=== PATIENT | female | born 1950 | race Caucasian/White ===

== ENCOUNTER 2017-01-08 00:14 | Day surgery (SDC) | payer OTHER ==
[~2017-01-08] VITALS: Ht 175.3 cm; Wt 102.0 kg
[2017-01-08] VITALS (12 sets, daily range): BP systolic 110–154; BP diastolic 42–76; PULSE 55–62; RESP 10–16; O2SAT 94–97
[~2017-01-08 00:14] MED LIST: ACET1TAB12 PO; ALPR0.254 PO; ASPI-1148 PO; ASPI-973 PO; ATOR80TA77 PO; CARV6.252 PO; CITA20TA11 PO; GLIM1TAB PO; HYDR59LO2 TP; LEVO112C2 PO; LOSA100T29 PO; MELA5TAB12 PO; METF500T3 PO; PROM25TA14 PO
--- NOTE | 2017-01-08 08:30 | NUR ---
ADMISSION NOTE FEMALE PT ADMITTED FOR HEART CATH. DISCUSSED PLAN OF CARE WITH PT. SEE ADMIT AND FLOW SHEET
[2017-01-08 09:05] LABS: BASOPHILS % (AUTO) 1.1 % (0-3); EOSINOPHILS % (AUTO) 2.7 % (0-5); MONOCYTES % (AUTO) 9.3 % (4-12); Mean Corpuscular Hemoglobin 30.1 pg (27.0-35.0); Mean Corpuscular Volume 92.5 fL (81-100); NEUTROPHILS % (AUTO) 58.9 % (40-74); Platelet Count 248 bil/L (150-400)
[2017-01-08] MEDS ORDERED: Heparin 1,000 Units/500 mL NS Premix IV ONE (09:07)
[2017-01-08] MEDS ORDERED: Heparin 5,000 Units/500 mL NS Premix IV ONE (09:08)
[2017-01-08] MEDS ORDERED: Heparin 1,000 Unit/mL 10 mL Inj ONE (09:08)
[2017-01-08] MEDS ORDERED: Nitroglycerin 50,000 mcg/250 mL D5W Premix IV ONE (09:08)
[2017-01-08] MEDS ORDERED: Verapamil 2.5 mg/mL 2 mL Inj ONE (10:28)
[2017-01-08] MEDS ORDERED: 0.9% Sodium Chloride 1,000 ML IV SCH (10:40)
[2017-01-08] MEDS ORDERED: fentaNYL-PF 50 mCg/mL 2 mL Inj ONE (10:52)
--- NOTE | 2017-01-08 11:43 | CS94 ---
[address] [address] DIAGNOSTIC CARDIAC CATHETERIZATION PATIENT: MORE HOLDER : 1950 MR#: [id number] ADMIT: 01/08/2017 JOB ID: [id number] SERVICE DATE: 01/08/2017 PROCEDURE: 1. Selective right and left coronary angiography. 2. Left heart catheterization. 3. Left ventriculography. INDICATION: Chest pain in a patient with known history of LAD stenting, abnormal stress test. PROCEDURAL DETAILS: These are enumerated in the procedure log to which the reader and the coders are referred. Briefly, a right radial approach, 6-Wolof system. ANGIOGRAPHIC FINDINGS: 1. Left main normal. 2. LAD in its ostium has a 30% lesion in its mid segment. It has a long stent which is widely patent. Distal to the stent, there is about a 20% lesion. Overall excellent long-term results from stenting. 3. Circumflex is nondominant, free of any significant disease. The ramus intermedius is a moderate caliber vessel free of any significant disease. 4. Right coronary artery is dominant. It is free of any disease. 5. Left heart catheterization revealed an LVEDP of 15. There was no gradient upon pullback. Left heart catheterization revealed preserved contractility. EF is estimated to be 65%. SUMMARY: This lady's symptoms are atypical, probably related to hypertensive heart disease. There is no evidence of any significant epicardial coronary artery disease. A prior stent is patent. Medical therapy is recommended.
--- NOTE | 2017-01-08 15:30 | NUR ---
DISCHARGE NOTE UP IN ROOM, SITE STABLE. NO BLEEDING OR HEMATOMA. INSTRUCTIONS GIVEN. HOME WITH
== END 2017-01-08 23:59 | disposition home or self-care (01) ==
LOC: SOUO 00:14 → EDSTATUS 11:39 → SOUO 23:59
PROVIDERS: ATTEND Internal Medicine Cardiovascular Disease
DX: I25.10 Atherosclerotic heart disease of native coronary artery without angina pectoris (principal); R94.39 Abnormal result of other cardiovascular function study; E11.9 Type 2 diabetes mellitus without complications; I10 Essential (primary) hypertension; M79.7 Fibromyalgia; Z95.5 Presence of coronary angioplasty implant and graft; Z98.84 Bariatric surgery status; Z79.82 Long term (current) use of aspirin; Z79.84 Long term (current) use of oral hypoglycemic drugs
CPT/HCPCS: 80048; 85025; 85610; 93005; 93458; 99152; 99153; C1769; C1887; C1894; J1200; J1644; J2060; J2250; J3010; J7030; Q9967

== ENCOUNTER 2017-03-15 05:32 | Day surgery (SDC) | payer OTHER ==
--- NOTE | 2017-03-13 15:33 | PCM.ANEPRE ---
Anesthesia Pre-Op Review Reason for Review: CARDIAC HX Anesthesia Recommendations: Proceed with Procedure Additional Comments cardiac clearance in chart Curt Weaver MD Mar 13, 2017 15:33
[2017-03-15] VITALS (8 sets, daily range): BP systolic 104–168; BP diastolic 56–93; PULSE 50–56; RESP 9–17; O2SAT 97–100
[~2017-03-15] VITALS: Ht 175.3 cm; Wt 96.6 kg
[~2017-03-15 05:32] MED LIST changes: +Clindamycin 900 mg/50 mL D5W IV ONE
[2017-03-15] MEDS ORDERED: fentaNYL-PF 50 mCg/mL 2 mL Inj ONE (05:33)
[2017-03-15] MEDS ORDERED: Ondansetron 2 mg/mL 2 mL Inj ONE (05:33)
[2017-03-15] MEDS ORDERED: Dexamethasone 4 mg/mL Inj ONE (05:33)
[2017-03-15] MEDS ORDERED: Propofol 10,000 mCg/mL 20 mL Inj ONE (05:33)
[2017-03-15] MEDS ORDERED: EPHEDrine/NS 5 mg/mL 5 mL Syringe ONE (05:33)
[2017-03-15] MEDS ORDERED: Clindamycin 900 mg/50 mL D5W Premix IV ONE (05:43)
[2017-03-15] MEDS ORDERED: Lactated Ringer's 1,000 ML IV ONE ×2 (05:44→08:01)
--- NOTE | 2017-03-15 07:15 | PCM.HPANE ---
Patient Data Surgeon Admitting Provider: Attending Provider:Fredo Reynoso MD Primary Care Physician:Donna Bertrand MD Other Provider:[facility] Anest[facility] Reason for Visit Right Meniscal Tear Ht/WT & BMI Height (Feet): 5 Height (Inches): 9 Weight (Kilograms): 96.6 Body Mass Index 31.00 Allergies Coded Allergies: Penicillins (Verified Allergy, Severe, RASH, 03/12/17) honey (Verified Allergy, Severe, THROAT SWELLING, 03/12/17) shellfish derived (Verified Allergy, Severe, THROAT SWELLING, 03/12/17) Sulfa (Sulfonamide Antibiotics) (Verified Adverse Reaction, Severe, HEADACHE, 03/12/17) metformin (Verified Adverse Reaction, Severe, N&V (GENERIC ONLY), 03/12/17 ) Past Anesthesia History Anesthesia History: Denies:: Anesthesia Reactions, Malignant Hyperthermia Diabetes History Hx Diabetes?: Yes Type of Diabetes: Type II Glycemic Control: Oral Medication Current Bedside Blood Glucose: 105 MRSA MRSA: No Medications Blood Thinner: Aspirin Hypertension Medication: Yes (LOSARTAN) Home Meds Incl Beta Melissa: Yes (CARVEDILOL) Reported Medications Acetaminophen/Codeine 300-30mg (Tylenol/Codeine #3)1 Each Tablet1 Tablet PO HS PRN Pain Ref 0 01/07/17 Levothyroxine (Tirosint)112 Mcg Kgarsdo072 Mcg PO DAILY 01/07/17 Promethazine 25 Mg Vpxnmx72 Mg PO q4-6H PRN For Nausea Ref 0 01/07/17 Melatonin 5 Mg Tab.rapdis5 Mg PO 01/07/17 Losartan Potassium 100 Mg Hqlgze505 Mg PO DAILY 01/07/17 Hydrocortisone 59 Ml Lotion1 Applic TP DAILY 01/07/17 Metformin ER (Glucophage XR)500 Mg Xqopcb297 Mg PO BID Ref 0 01/07/17 Glimepiride 1 Mg Tablet1 Mg PO DAILYAC #30 TABLET Ref 0 01/07/17 Aspirin/Acetaminophen/Caffeine (Dpufwnr-Bjuoyytbicstq-Aovs Tab)250 Mg-250 Mg-65 Mg Tablet1 Each PO DAILY PRN For Headache 01/07/17 Citalopram 20 Mg Tablet5 Mg PO DAILY Ref 0 01/07/17 Carvedilol 6.25 Mg Tablet6.25 Mg PO BID Ref 0 01/07/17 Atorvastatin Calcium 80 Mg Vdujih70 Mg PO DAILY Ref 0 01/07/17 Aspirin 81 Mg Cauznx70 Mg PO DAILY Ref 0 01/07/17 Alprazolam 0.25 Mg Tablet0.25 Mg PO DAILY Ref 0 01/07/17 History History of ENT Problems?: No HEENT History: Denies:: Abnormal Airway Denture Type: None Teeth Condition: Within Normal Limits Hx of Heart Problems?: Yes Cardiovascular History: Positive for:: Cardiac Surgery (S/P HEART CATH W/ LAD ALCIDES 10/2015;HEART CATH 12/2016) Chest Pain Coronary Artery Disease (HX CO "MILD") Edema Hypertension (HYPERLIPIDEMIA) Denies:: Heart Murmur (ECHO 12/2016 EF 65-70%) Irregular Heartbeat (HX SYNCOPE) Valvular Heart Disease Hx of Respiratory Problem?: No Respiratory History: Denies:: Use of C-PAP Machine Hx Neurologic Problems?: Yes Neurological History: Positive for:: Dizziness (HX SYNCOPE) Headaches Hx of GI Problems?: Yes Other GI Pertinent History: S/P LAP BAND-UNSUCCESSFUL; NO WEIGHT LOSS Hx of Problems?: Yes Genitourinary History: Positive for:: Urinary Tract Infection (HX RECURRENT UTI'S) Female Hx: Denies:: Currently Skin History: Positive for:: History Skin Disorders? (PSORIASIS) Denies:: Pressure Ulcers Hx Musculoskeletal Problems?: Yes Musculoskeletal History: Positive for:: Back Injury Musculoskeletal Trauma (RT KNEE MENISCAL TEAR=CURRENT PROBLEM) Hx of Psycho/Social Problems?: Yes Psycho Social History: Positive for:: Anxiety Hx Depression Hx Surgeries?: Yes (HEART CATH W/ STENT,HEART CATH,LAP BAND,SACHA/MRCP,HYST) Hx Any Other Health Problems?: Yes Other History: Positive for:: Hospitalization Thyroid Disease Denies:: Cancer Endocrine Disease History Blood Transfusions: Denies:: Blood Transfuse Reaction Blood Transfusions Hx Diabetes: YesBedside Blood Glucose: 105 Hx Alcohol Use: NoHx Substance Use: No Smoking Status: Never Smoker Have You Smoked inLast 12 mo: No Stop/Bang S-Snoring: Do You Snore Loudly: No T-Tired: feel tired, fatigued: No O-Obsered: Observed not breath: No P-Blood Pressure: treated: Yes B- Body Mass Index > 35 kg/m2: No A- Age over 50: Yes N- Neck Large Circumference: No G- Gender Male: No RYAN Total Score: 4 Additional Information Screening on DOS is 2 RYAN Risk Assessment: Low Risk, <3 Yes Risk Assessment Category Category 1A: Patient has history of documented sleep apnea, and HAS NOT received any narcotic, sedative or anesthesia administration during this stay. Category 1B: Patient has history of documented sleep apnea, and HAS received any narcotic , sedative or anesthesia administration during this stay Category 2: Patient has SUSPECTED Obstructive Sleep Apnea, and HAS received any narcotic , sedative or anesthesia administration during this stay. Category 3: Patient has SUSPECTED Obstructive Sleep Apnea and HAS NOT received narcotic, sedative or anesthesia administration during this stay. Category 4: Outpatient in Procedural Areas with known sleep apnea or who screen positive for High Risk via the STOP/BANG questionnaire. Exam Exam Vital Signs Vital Signs Date Time Temp Pulse Resp B/P Pulse Ox O2 Delivery O2 Flow Rate FiO2 03/15/17 05:53 35.9 53 16 143/64 98 Room Air General Appearance: Alert, Oriented X3, Cooperative, No Acute Distress HEENT/AIRWAY: MP 2, Neck Movement Lungs: Clear to Auscultation, Normal Air Movement Heart: Exam Unremarkable, Regular Rate/Rhythm, No Murmurs/Rubs/Gallops Meds/Labs/Diagnostics Admission Meds Current Medications Lactated Ringer's (Lr) 1,000 ml @ ud STK-MED ONCE IV Last administered on 03/15t 05:44; Start 03/15/17 at 05:44; Stop 03/15/17 at 05:45; Status DC Bedside Blood Glucose: 105 Plan Impression Patient chart reviewed, patient interviewed and anesthestic plan with risks, benefits, and alternatives discussed, and informed consent obtained. NPO per Anesth. Guidelines: Yes ASA Physical Status: ASA3 Severe Disease Anesthetic Plan: GA Bene/Risks/Altern/Consents: Yes HP Complete Prior to Induction: Yes Mike Anderson MD Mar 15, 2017 07:15
[2017-03-15] MEDS ORDERED: Ropivacaine-PF 0.5% 30 mL Inj INFILTRATE ONE (08:00)
[2017-03-15] MEDS ORDERED: Ondansetron 2 mg/mL 2 mL Inj IVPUSH PRN (08:05)
[2017-03-15] MEDS ORDERED: Dexamethasone 4 mg/mL Inj IVPUSH PRN (08:05)
[2017-03-15] MEDS ORDERED: Labetalol 5 mg/mL 4 mL Inj IV PRN (08:05)
[2017-03-15] MEDS ORDERED: HYDROmorphone 1 mg/mL Inj IVPUSH PRN (08:05)
[2017-03-15] MEDS ORDERED: EPHEDrine Sulfate 50 mg/mL Inj IVPUSH PRN (08:05)
[2017-03-15] MEDS ORDERED: MetoCLOpramide 5 mg/mL 2 mL Inj IVPUSH PRN (08:05)
[2017-03-15] MEDS ORDERED: Lactated Ringer's 1,000 ML IV SCH (08:05)
[2017-03-15] MEDS ORDERED: Lactated Ringer's 500 ML IV PRN (08:05)
[2017-03-15] MEDS ORDERED: Atropine 0.4 mg/mL Inj IVPUSH PRN (08:05)
[2017-03-15] MEDS ORDERED: fentaNYL-PF 50 mCg/mL 2 mL Inj IVPUSH PRN (08:05)
[2017-03-15] MEDS ORDERED: Phenylephrine 10,000 mCg/mL Inj IVPUSH PRN (08:05)
[2017-03-15] MEDS ORDERED: HYDROcodone-APAP 5-325 mg Tablet PO PRN (08:25)
[2017-03-15] MEDS ORDERED: Ketorolac 15 mg/mL Inj IVPUSH ONE (08:25)
--- NOTE | 2017-03-15 08:31 | PCM.ORTHOP ---
Orthopedic Operative Report Date of Service: Mar 15, 2017 Pre Operative Diagnosis Left knee medial and lateral meniscus tears, chondromalacia Post Operative Diagnosis Left knee medial and lateral meniscus tears, chondromalacia, synovitis Procedure Left knee arthroscopy, partial medial meniscectomy, partial lateral meniscectomy , chondroplasty, partial synovectomy Surgeon Surgeon: Fredo Reynoso MD Assistants: None Indication for Procedure Left knee meniscus tear Findings Per dictation. Details of Procedure INDICATIONS: Alcira Coffman is a 66-year-old female who has had a history of left knee pain. The patient has failed conservative management. X- rays show the tibiofemoral joints to be preserved with mild DJD. MRI was obtained which reveals medial and lateral l meniscus tear. The patient has had persistent symptoms and is now brought to the operating room for arthroscopy. The risks, benefits, and alternatives of surgery were discussed with the patient. The risks included but were not limited to infection, bleeding, damage to vessels and nerves, loss of motion, continued pain, re-tear of the meniscus, deep venous thrombosis, and complications due to anesthesia including nerve injury, myocardial infarction, stroke, , etc. The patient stated understanding of the nature of the surgical procedure and gave written and verbal consent to proceed. PROCEDURE: The patient was brought to the operating room and placed supine on the operating room table. After the administration of general anesthesia the patient was placed in the supine position. Examination of the knee revealed no evident instability with a trace effusion. All prominences were padded with appropriately and neurovascular structures protected. The left knee was confirmed to be the appropriate site following surgical time out. The left lower extremity was examined under anesthesia. Range of motion was 0-135 degrees. There was no varus or valgus or anterior or posterior instability. The left lower extremity was then prepped and draped in the usual fashion. Sterile prep and drape was then undertaken of the knee. The knee joint was injected with 20 ccs of 1% Lidocaine, along with 3 ccs of 1 % lidocaine in the medial and lateral portal sites respectively. A standard anterolateral parapatellar stab wound was created. The knee joint was entered with a blunt- tipped obturator, followed by the 30-degree video arthroscope. An anteromedial portal was established under arthroscopic control. A routine arthroscopic survey was performed. The patellofemoral joint showed grade 2/3 chondromalacia which was debrided down to stable tissue with a shaver. The medial joint space was then entered. The articular surfaces showed grade 2/ 3 chondromalacia. A degenerative posterior horn with a radial medial meniscal tear was noted with a small flap. The shaver and the cutting instruments were inserted, and a debridement of the meniscus back to healthy tissue was then undertaken. The ACL and PCL were noted to be intact. The lateral joint space was then entered. The articular surfaces were intact with grade 2/3 chondromalacia. There was a degenerative tear to the body and lateral aspect of the lateral meniscus. A combination of the shaver and cutting instruments were then inserted and a debridement of this tissue down to stable tissue was undertaken. Moderate synovitis was noted anteriorly in the medial and lateral compartment and debrided with a shaver. The knee was irrigated with an additional 2 liters of lactated Ringer's solution. Excess fluid was drained. The portals were closed with 3-0 nylon as well as xeroform. The knee was injected with 20 mL of 0.5% ropivacaine. A dry sterile dressing was applied, followed by an TANI hose, soft roll, and DEBBIE bandage. The patient was awakened in the operating room and transported to the recovery room in satisfactory condition. The patient appeared to tolerate the procedure well. At the completion of surgery the patient had soft compartments , palpable pulses, and brisk capillary refill. There were no complications noted. Please keep dressing clean dry and intact. Do not remove dressing until follow- up in clinic. If the dressing become soaked, you may remove the outer gauze and placed Band-Aids on the wounds. You may weight-bear as tolerated and maintain motion of your knee by bending it daily. You will follow up in clinic in 10-14 days for suture removal, and placement of new Steri-Strips. You will follow-up with me in clinic, and we will start physical therapy if needed. You will follow-up with me at 6 weeks postop and 12 weeks postop and will be released after that if improved. Please keep the affected extremity elevated when possible. Please take aspirin as prescribed . You may use ice and /or heat as needed for comfort. (preferably ice during the first 48-72 hours) Please feel free to call with any further questions, comments, and/or concerns. Grafts, Implants: None, Implants-See Implant Record Complications There were no periprocedural complications identified. Condition Stable Anesthetic Administered: GA Catheters: None Output, Estimated Blood Loss: 5 Blood Admin during surgery: No Surgical Cast or Splint: Other Surgical Specimen Removed: No Specimen sent to Pathology: No copies to: Fredo Reynoso MD, Christopher L MD Mar 15, 2017 08:31
--- NOTE | 2017-03-15 09:01 | PCM.ANEP1 ---
Post Anesthesia PACU Phase 1 Assessment Vital Signs Vital Signs Date Time Temp Pulse Resp B/P Pulse Ox O2 Delivery O2 Flow Rate FiO2 03/15/17 08:55 56 16 104/72 98 Room Air 03/15/17 08:45 36.6 56 12 148/93 97 Room Air 03/15/17 08:40 55 12 141/63 100 Room Air 03/15/17 08:35 53 9 134/68 100 Nasal Cannula 2 03/15/17 08:30 56 12 129/69 100 Nasal Cannula 2 03/15/17 08:25 36.6 50 11 145/81 100 Nasal Cannula 2 03/15/17 05:53 35.9 53 16 143/64 98 Room Air Anesthetic Administered: GA Level of Alertness: Awake, talking RAMÍREZ's with Equal Strength: Yes Pain: No Nausea or Vomiting: No CV Function & Hydration Stable: Yes Airway Device: Oralpharangeal Airway Oxygen Delivery: Room Air Lungs: Clear to Auscultation, Normal Air Movement Dermatome Level: Full Sensation PACU Phase 2 Assessment Complications: No Follow up Care: N/A Patient Instructions Provided: Yes Mike Anderson MD Mar 15, 2017 09:01
== END 2017-03-15 23:59 | disposition home or self-care (01) ==
LOC: SAS 05:32
PROVIDERS: ATTEND Orthopaedic Surgery
DX: M23.262 Derangement of other lateral meniscus due to old tear or injury, left knee (principal); M23.222 Derangement of posterior horn of medial meniscus due to old tear or injury, left knee; I25.10 Atherosclerotic heart disease of native coronary artery without angina pectoris; E11.9 Type 2 diabetes mellitus without complications; E78.00 Pure hypercholesterolemia, unspecified; F41.8 Other specified anxiety disorders; M79.7 Fibromyalgia; Z95.5 Presence of coronary angioplasty implant and graft; Z79.82 Long term (current) use of aspirin; Z79.84 Long term (current) use of oral hypoglycemic drugs; Z90.710 Acquired absence of both cervix and uterus; Z98.84 Bariatric surgery status; Z87.440 Personal history of urinary (tract) infections
CPT/HCPCS: 29880; J1100; J1885; J2250; J2405; J2795; J3010; J3490; J7120